=== PATIENT | female | born 1940 | race Caucasian/White ===

== ENCOUNTER 2022-10-18 12:45 | Emergency (ER) | payer MEDICARE ==
[2022-10-18] MEDS ORDERED: HYDROcodone/Acetaminophen 5/325 mg Tablet ONE (13:43)
== END 2022-10-18 16:15 | disposition home or self-care (01) ==
LOC: CSHERS 12:45
DX: S22.069A Unspecified fracture of T7-T8 vertebra, initial encounter for closed fracture (principal); I10 Essential (primary) hypertension; E78.5 Hyperlipidemia, unspecified; W17.89XA Other fall from one level to another, initial encounter
CPT/HCPCS: 70450; 72125; 72128; 96372

== ENCOUNTER 2023-01-01 12:39 | Outpatient (CLI) | payer MEDICARE | END 2023-01-01 12:40 | disposition home or self-care (01) | LOC: CSHCT 12:39 | PROVIDERS: ATTEND Family Medicine | DX: S22.069D Unspecified fracture of T7-T8 vertebra, subsequent encounter for fracture with routine healing (principal); M25.78 Osteophyte, vertebrae | CPT/HCPCS: 72128 ==

== ENCOUNTER 2023-03-25 13:37 | Outpatient (CLI) | payer MEDICARE | END 2023-03-25 13:38 | disposition home or self-care (01) | LOC: CSHCT 13:37 | PROVIDERS: ATTEND Family Medicine | DX: S22.069G Unspecified fracture of T7-T8 vertebra, subsequent encounter for fracture with delayed healing (principal) | CPT/HCPCS: 72128 ==

== ENCOUNTER 2023-11-29 14:25 | Outpatient (CLI) | payer MEDICARE | END 2023-11-29 14:26 | disposition home or self-care (01) | LOC: CSHMAMMO 14:25 | PROVIDERS: ATTEND Family Medicine | DX: Z12.31 Encounter for screening mammogram for malignant neoplasm of breast (principal); M81.0 Age-related osteoporosis without current pathological fracture; M85.851 Other specified disorders of bone density and structure, right thigh; M85.852 Other specified disorders of bone density and structure, left thigh; Z80.3 Family history of malignant neoplasm of breast | CPT/HCPCS: 77063; 77067; 77080 ==